=== PATIENT | female | born 1945 | race Caucasian/White ===

== ENCOUNTER → 2023-09-02 16:24 | Outpatient (REF) | payer MEDICARE, SELFPAY | LOC: RAD 16:24 | PROVIDERS: ATTENDING PHYSICIAN Family Medicine | DX: D3A.090 Benign carcinoid tumor of the bronchus and lung (principal) | CPT/HCPCS: 71250 ==

== ENCOUNTER → 2024-03-27 06:59 | Outpatient (REF) | payer MEDICARE, SELFPAY | LOC: PAVMRI 06:59 | PROVIDERS: ATTENDING PHYSICIAN Physician Assistant; FAMILY PHYSICIAN Family Medicine | DX: M54.16 Radiculopathy, lumbar region (principal) | CPT/HCPCS: 72148 ==

== ENCOUNTER → 2024-04-04 12:14 | Outpatient (REF) | payer MEDICARE, SELFPAY ==
[2024-04-04 13:37] LABS: % Basophils 0.4 % (0-2); % Eosinophils 0.6 % (0-6); % Immature Granulocytes 0.2 % (0-0.5); % Lymphocytes 32.4 % (20.5-51.1); % Monocytes 7.5 % (1.7-9.3); % Neutrophils 58.9 % (42.2-75.2); Absolute Lymphocytes 1.6 10^3/uL (1.2-3.4); Absolute Monocytes 0.4 10^3/uL (0.1-0.6); Absolute Neutrophils 2.8 10^3/uL (1.4-6.5); Hematocrit 38.4 % (37.0-47.0); Hemoglobin 13.2 g/dL (12.0-16.0); Mean Corp Hgb Conc. 34.4 g/dL (33.0-37.0); Mean Corpuscular Hgb 31.1 pg (27.0-31.0); Mean Corpuscular Volume 90.6 fL (81.0-99.0); Mean Platelet Volume 12.1 fL (7.4-10.4); Nucleated Red Blood Cells % 0 %; Platelet Count 201 10^3/uL (130-400); Red Blood Cell Count 4.24 10^6/uL (4.20-5.40); Red Cell Dist. Width 12.9 % (11.5-14.5); White Blood Cell Count 4.8 10^3/uL (4.8-10.8)
[2024-04-04 14:10] LABS: HDL Cholesterol 50 mg/dl; LDL Cholesterol, Calculated 50 mg/dl; Total Cholesterol 167 mg/dl (50-199); Triglyceride 337 mg/dl (10-149); Very Low Density Lipoprotein 67 mg/dl (0-30)
== END ==
LOC: REG 12:14
PROVIDERS: ATTENDING PHYSICIAN Family Medicine
DX: I10 Essential (primary) hypertension (principal)
CPT/HCPCS: 36415; 80061; 85025

== ENCOUNTER 2024-04-23 19:26 | Emergency (ER) | payer MEDICARE, SELFPAY ==
[2024-04-23 19:28] VITALS: BP 163/75
[2024-04-23 21:18] VITALS: BP 133/65
[2024-04-23] MEDS: DECADRON 10 MG PO (21:54)
[2024-04-23] MEDS: ANTIVERT 25 MG PO (21:55)
[2024-04-23 22:00] VITALS: BP 131/68
--- NOTE | 2024-04-23 22:23 | ED.GENMED ---
History of Present Illness
General
Chief Complaint: Dizziness
Source: patient and spouse
Exam Limitations: none
Time Seen by Provider: 04/23/24 21:21
Nursing documentation reviewed up to this point in time: agreed with
History of Present Illness
History of Present Illness:
78-year-old female past medical history of GERD hypertension presenting to the emergency department today with concerns of room spinning dizziness over the past few days has been somewhat intermittent seem to be worse with certain head positioning.
She claims that she has had some inflammation to her left ear she has been taking meclizine without relief. Has had some sinus symptoms. Denies fevers chest pain shortness of breath numbness or weakness.
Review of Systems
Review of Systems
Allergies reviewed?: Yes
All Other Systems: ROS reviewed and negative except as documented in HPI and ROS
Phy Exam
Physical Exam
Physical Exam:
GENERAL: Alert , in no apparent distress
EYE: pupils equal and reactive no specific nystagmus on exam
NECK: Supple, no significant adenopathy.
ENT: o/p clr, mmm.
CARDIAC: Regular rate and rhythm .
LUNGS: Clear breath sounds bilaterally, no acute respiratory distress, no wheezes/rales/rhonchi
ABDOMEN: Soft, without focal tenderness, no r/g, no cvat
NEUROLOGICAL: Alert and oriented, no focal neuro deficits 5 out of 5 upper and lower extremity strength normal sensation when palpating bilaterally.
SKIN: Warm and dry, skin intact.
MUSCULOSKELETAL: No edema, well perfused.
PSYCH: Normal and appropriate interaction.
Course
Orders/Labs/Results
Orders:
Orders
04/23/24 19:33
EKG [Electrocardiogram (*1)] Urgent
Reason for Study: Vertigo / Dizzy
EKG- Treatment ONCE
04/23/24 21:44
Dexamethasone [Decadron] 10 mg PO NOW STA
Meclizine [Antivert] 25 mg PO NOW STA
Vital Signs
Initial and Last Documented VS:
Initial Vital Signs
Temp Pulse Resp BP
97.8 F 62 14 163/75
04/23/24 19:28 04/23/24 19:28 04/23/24 19:28 04/23/24 19:28
Last Documented Vital Signs
Temp Pulse Resp BP Pulse Ox
97.8 F 57 12 131/68 95
04/23/24 19:28 04/23/24 22:45 04/23/24 22:45 04/23/24 22:00 04/23/24 22:45
MDM/Problems Addressed
MDM/Problems Addressed:
78-year-old female presenting to the emergency department with concerns of room spinning dizziness over the past few days made worse with certain head positioning's and gaze changes also has had some slight pounding sensation to the left ear last
night currently no pain but does feel some fullness. She has been taking meclizine without relief at home. Upon arrival here blood pressure mildly elevated otherwise vital signs are normal. Patient no obvious distress but unwilling to move in
certain directions due to her avoidance worsening symptoms. No specific nystagmus on examination. She claims that she is asymptomatic when sitting still. Description of symptoms seem to be most consistent with peripheral vertigo considering the
positional nature. She did have some inflammation to her left ear on physical examination and was started on a steroid. Significant improvement of symptoms after treatment able to ambulate well good gait. Stable for discharge at this time advised
for close outpatient follow-up. Return precautions given.
*Critical Care Note
Total Time (30-74mins, 75-104mins- exclusive of procedures): Not Applicable
ED Attending Note
-
Portions of this chart may have been created with voice recognition software.� Occasional wrong word or��sound alike� substitutions may have occurred due to the inherent limitations of voice recognition software.
Discharge Plan
Departure
Patient Disposition: Home (Routine Discharge)
Date of Disposition: 04/23/24
Time of Disposition: 23:09
Patient with high blood pressure during this ER visit?: No
Condition: Good
Covid-19: Not Applicable
Discharge Problem:
Vertigo
Instructions: Dizziness
Prescriptions:
New
meclizine 25 mg tablet
25 mg PO BID PRN (Reason: dizziness) Qty: 7 0RF
prednisone 50 mg tablet
50 mg PO DAILY 4 Days Qty: 4 0RF
Referrals:
George Kennedy MD [Family Provider] -
Osmar Guzman MD [Active] - Follow up in 5-7 days
Brodie Head MD [Active] - Follow up in 5-7 days
Activity Restrictions/Additional Instructions:
You came to the emergency department today with concerns of vertigo. You had improvement here with medications. Please follow closely with ENT. Return to the emergency department any worsening, new or concerning symptoms.
Interventions
Interventions:
*Risk Screen - Suicide Last Done: 04/23/24 19:28
*General Assessment Last Done: 04/23/24 19:28
*Neglect/Abuse Screening Last Done: 04/23/24 19:28
Discharge Date and Time
Print Language: TRINIDADIAN
[2024-04-23 23:19] VITALS: BP 142/70
== END 2024-04-23 23:37 | disposition home or self-care (01) ==
LOC: EMR 19:26
PROVIDERS: EMERGENCY PHYSICIAN Emergency Medicine; FAMILY PHYSICIAN Family Medicine
DX: R42 Dizziness and giddiness (principal); K21.9 Gastro-esophageal reflux disease without esophagitis; I10 Essential (primary) hypertension
CPT/HCPCS: 99283; 93005

== ENCOUNTER → 2024-06-30 16:50 | Outpatient (REF) | payer MEDICARE, SELFPAY ==
[2024-06-30 18:13] LABS: Blood Urea Nitrogen 20 mg/dl (7-17)
== END ==
LOC: REG 16:50
PROVIDERS: ATTENDING PHYSICIAN Otolaryngology; FAMILY PHYSICIAN Family Medicine
DX: H90.3 Sensorineural hearing loss, bilateral (principal)
CPT/HCPCS: 36415; 82565; 84520

== ENCOUNTER → 2024-07-03 17:30 | Outpatient (REF) | payer MEDICARE, SELFPAY | LOC: MRI 17:30 | PROVIDERS: ATTENDING PHYSICIAN Otolaryngology; FAMILY PHYSICIAN Family Medicine | DX: R42 Dizziness and giddiness (principal) | CPT/HCPCS: 70553; A9575 ==

== ENCOUNTER → 2024-09-04 15:34 | Outpatient (REF) | payer MEDICARE, SELFPAY ==
[2024-09-04 16:57] LABS: % Basophils 0.5 % (0-2); % Eosinophils 0.5 % (0-6); % Immature Granulocytes 0.3 % (0-0.5); % Lymphocytes 27.1 % (20.5-51.1); % Monocytes 7.6 % (1.7-9.3); Absolute Lymphocytes 1.6 10^3/uL (1.2-3.4); Absolute Monocytes 0.5 10^3/uL (0.1-0.6); Absolute Neutrophils 3.8 10^3/uL (1.4-6.5); Hematocrit 37.9 % (37.0-47.0); Hemoglobin 13.3 g/dL (12.0-16.0); Mean Corp Hgb Conc. 35.1 g/dL (33.0-37.0); Mean Corpuscular Hgb 31.6 pg (27.0-31.0); Mean Platelet Volume 12.4 fL (7.4-10.4); Nucleated Red Blood Cells % 0 %; Platelet Count 175 10^3/uL (130-400); Red Blood Cell Count 4.21 10^6/uL (4.20-5.40)
[2024-09-04 17:14] LABS: Blood Urea Nitrogen 22 mg/dl (7-17); Calcium 9.7 mg/dl (8.4-10.2); Carbon Dioxide 29 mmol/L (22-30); Chloride 98 mmol/L (98-107); Glucose 84 mg/dl (70-99); Potassium 4.3 mmol/L (3.5-5.1); Sodium 135 mmol/L (135-145); eGFR > 60.00
== END ==
LOC: REG 15:34
PROVIDERS: ATTENDING PHYSICIAN Specialist; FAMILY PHYSICIAN Family Medicine
DX: Z01.818 Encounter for other preprocedural examination (principal)
CPT/HCPCS: 36415; 80048; 85025

== ENCOUNTER → 2024-09-06 14:08 | Outpatient (REF) | payer MEDICARE, SELFPAY | LOC: HWRAD 14:08 | PROVIDERS: ATTENDING PHYSICIAN Specialist; FAMILY PHYSICIAN Family Medicine | DX: M19.012 Primary osteoarthritis, left shoulder (principal) | CPT/HCPCS: 73200 ==

== ENCOUNTER 2024-10-23 14:58 | Outpatient (RCR) | payer MEDICARE, SELFPAY | END 2024-10-23 23:59 | disposition home or self-care (01) | LOC: RPT 14:58 | PROVIDERS: ATTENDING PHYSICIAN Physician Assistant Surgical; FAMILY PHYSICIAN Family Medicine | DX: Z47.1 Aftercare following joint replacement surgery (principal); Z96.612 Presence of left artificial shoulder joint; M19.012 Primary osteoarthritis, left shoulder; M62.81 Muscle weakness (generalized); Z73.6 Limitation of activities due to disability | CPT/HCPCS: 97010; 97110; 97140; 97162 ==

== ENCOUNTER → 2024-11-23 12:11 | Outpatient (REF) | payer MEDICARE, SELFPAY ==
[2024-11-23 13:02] LABS: % Basophils 0.8 % (0-2); % Lymphocytes 33.5 % (20.5-51.1); % Monocytes 9.1 % (1.7-9.3); % Neutrophils 54.6 % (42.2-75.2); Absolute Eosinophils 0.1 10^3/uL (0-0.7); Absolute Lymphocytes 1.3 10^3/uL (1.2-3.4); Absolute Monocytes 0.4 10^3/uL (0.1-0.6); Absolute Neutrophils 2.2 10^3/uL (1.4-6.5); Hematocrit 41.2 % (37.0-47.0); Mean Corpuscular Hgb 31.3 pg (27.0-31.0); Mean Platelet Volume 12.2 fL (7.4-10.4); Nucleated Red Blood Cells % 0 %; Platelet Count 175 10^3/uL (130-400); Red Blood Cell Count 4.48 10^6/uL (4.20-5.40); Red Cell Dist. Width 13.2 % (11.5-14.5)
[2024-11-23 13:41] LABS: ALT (SGPT) 15 U/L (0-35); AST (SGOT) 21 U/L (14-36); Albumin 4.5 g/dl (3.5-5.0); Alkaline Phosphatase 70 U/L (38-126); Blood Urea Nitrogen 14 mg/dl (7-17); Calcium 9.9 mg/dl (8.4-10.2); Carbon Dioxide 30 mmol/L (22-30); Chloride 106 mmol/L (98-107); Glucose 109 mg/dl (70-99); HDL Cholesterol 54 mg/dl; Iron 128 ug/dl (37-170); LDL Cholesterol, Calculated 85 mg/dl; Potassium 4.4 mmol/L (3.5-5.1); Sodium 141 mmol/L (135-145); Total Bilirubin 0.6 mg/dl (0.2-1.3); Total Cholesterol 206 mg/dl (50-199); Triglyceride 337 mg/dl (10-149); Very Low Density Lipoprotein 67 mg/dl (0-30); eGFR > 60.00
[2024-11-23 13:50] LABS: Percent Saturation 46 % (20-50); Total Iron Binding Capacity 277 ug/dl (265-497)
[2024-11-23 14:16] LABS: Glycohemoglobin (HgbA1c) 5.5 % (4.0-5.6)
[2024-11-23 15:50] LABS: Free T4 0.96 ng/dl (0.78-2.19); Vitamin D, 25-OH*** 53.7 ng/mL (30-80)
[2024-11-23 16:02] LABS: TSH 0.13 uIU/ml (0.47-4.68)
[2024-11-23 16:07] LABS: Ferritin 68.2 ng/ml (11.1-264.0)
[2024-11-23 16:22] LABS: Vitamin B12 959 pg/ml (239-931)
== END ==
LOC: REG 12:11
PROVIDERS: ATTENDING PHYSICIAN Physician Assistant Medical; FAMILY PHYSICIAN Family Medicine
DX: I10 Essential (primary) hypertension (principal); R53.83 Other fatigue; E78.2 Mixed hyperlipidemia; Z79.899 Other long term (current) drug therapy; M25.50 Pain in unspecified joint
CPT/HCPCS: 36415; 80053; 80061; 82306; 82607; 82728; 83036; 83540; 83550; 84439; 84443; 85025; 86618

== ENCOUNTER 2024-11-24 14:18 | Outpatient (RCR) | payer MEDICARE, SELFPAY | END 2024-11-24 23:59 | disposition home or self-care (01) | LOC: RPT 14:18 | PROVIDERS: ATTENDING PHYSICIAN Physician Assistant Surgical; FAMILY PHYSICIAN Family Medicine | DX: Z47.1 Aftercare following joint replacement surgery (principal); M19.012 Primary osteoarthritis, left shoulder; Z73.6 Limitation of activities due to disability; M62.81 Muscle weakness (generalized); Z96.612 Presence of left artificial shoulder joint | CPT/HCPCS: 97010; 97110; 97112; 97140 ==

== ENCOUNTER → 2024-12-01 15:29 | Outpatient (REF) | payer MEDICARE, SELFPAY ==
[2024-12-01 16:07] LABS: % Basophils 0.7 % (0-2); % Eosinophils 0.8 % (0-6); % Immature Granulocytes 0.4 % (0-0.5); % Lymphocytes 29.5 % (20.5-51.1); % Monocytes 9.2 % (1.7-9.3); % Neutrophils 59.4 % (42.2-75.2); Absolute Basophils 0.1 10^3/uL (0-0.2); Absolute Eosinophils 0.1 10^3/uL (0-0.7); Absolute Lymphocytes 2.1 10^3/uL (1.2-3.4); Absolute Monocytes 0.7 10^3/uL (0.1-0.6); Absolute Neutrophils 4.3 10^3/uL (1.4-6.5); Hematocrit 44.2 % (37.0-47.0); Hemoglobin 15.1 g/dL (12.0-16.0); Mean Corp Hgb Conc. 34.2 g/dL (33.0-37.0); Mean Corpuscular Hgb 31.1 pg (27.0-31.0); Mean Corpuscular Volume 91.1 fL (81.0-99.0); Mean Platelet Volume 11.9 fL (7.4-10.4); Nucleated Red Blood Cells % 0 %; Platelet Count 198 10^3/uL (130-400); Red Blood Cell Count 4.85 10^6/uL (4.20-5.40); Red Cell Dist. Width 12.9 % (11.5-14.5); White Blood Cell Count 7.3 10^3/uL (4.8-10.8)
== END ==
LOC: REG 15:29
PROVIDERS: ATTENDING PHYSICIAN Physician Assistant Medical; FAMILY PHYSICIAN Family Medicine
DX: D72.819 Decreased white blood cell count, unspecified (principal)
CPT/HCPCS: 36415; 85025

== ENCOUNTER 2024-12-22 13:53 | Outpatient (RCR) | payer MEDICARE, SELFPAY | END 2024-12-22 23:59 | disposition home or self-care (01) | LOC: RPT 13:53 | PROVIDERS: ATTENDING PHYSICIAN Physician Assistant Surgical; FAMILY PHYSICIAN Family Medicine | DX: Z47.1 Aftercare following joint replacement surgery (principal); M19.012 Primary osteoarthritis, left shoulder; Z73.6 Limitation of activities due to disability; M62.81 Muscle weakness (generalized); Z96.612 Presence of left artificial shoulder joint | CPT/HCPCS: 97010; 97110; 97112; 97140 ==

== ENCOUNTER 2025-01-22 14:12 | Outpatient (RCR) | payer MEDICARE, SELFPAY | END 2025-01-22 23:59 | disposition home or self-care (01) | LOC: RPT 14:12 | PROVIDERS: ATTENDING PHYSICIAN Physician Assistant Surgical; FAMILY PHYSICIAN Family Medicine | DX: Z47.1 Aftercare following joint replacement surgery (principal); M19.012 Primary osteoarthritis, left shoulder; Z73.6 Limitation of activities due to disability; M62.81 Muscle weakness (generalized); Z96.612 Presence of left artificial shoulder joint | CPT/HCPCS: 97010; 97110; 97112; 97140 ==

== ENCOUNTER 2025-02-16 12:53 | Outpatient (RCR) | payer MEDICARE, SELFPAY | END 2025-02-21 12:56 | disposition home or self-care (01) | LOC: RPT 12:53 | PROVIDERS: ATTENDING PHYSICIAN Physician Assistant Surgical; FAMILY PHYSICIAN Family Medicine | DX: Z47.1 Aftercare following joint replacement surgery (principal); M19.012 Primary osteoarthritis, left shoulder; Z73.6 Limitation of activities due to disability; Z96.612 Presence of left artificial shoulder joint; M62.81 Muscle weakness (generalized) | CPT/HCPCS: 97010; 97110; 97112 ==

== ENCOUNTER 2025-03-07 20:19 | Emergency (ER) | payer MEDICARE, SELFPAY ==
[2025-03-07 20:22] VITALS: BP 174/88
[2025-03-07] MEDS: ROXICODONE 5 MG PO (21:14)
[2025-03-07] MEDS: LIDOCAINE 4% PATCH 1 PATCH TOPICAL (21:15)
[2025-03-07 21:19] VITALS: BMI 26.0
[2025-03-07 21:21] VITALS: BP 157/80
[2025-03-07 22:06] VITALS: BP 162/81
--- NOTE | 2025-03-07 22:36 | ED.MUSCINJ ---
HPI-Injury
General
Chief Complaint: Musculo-Skeletal Complaint
Source: patient
Exam Limitations: none
Time Seen by Provider: 03/07/25 20:56
Nursing documentation reviewed up to this point in time: agreed with
History of Present Illness-Injury
Is this injury a work related problem?: No
Is pt an associate of [facility]?: No
Initial Injury comments:
Patient to ED wtih complaint of left posterior shoulder pain. Pain started this afternoon. States she was lifting heavy boxes today but did not have pain at that time. Taking tylenol wihtout improvement. Pain is worse with movement. Denies any
cp/pressure, SOB. To ED accompanied by spouse.
Past History
Past History
ED Past Medical History: None
Review of Systems
Review of Systems
Allergies reviewed?: Yes
All Other Systems: ROS reviewed and negative except as documented in HPI and ROS
Constitutional: Reports no symptoms
EENT: Reports no symptoms
Respiratory: Reports no symptoms
Cardiac: Reports no symptoms
ABD/GI: Reports no symptoms
Musculoskeletal: Reports joint pain (Pain to left posterior shoulder)
Skin: Reports no symptoms
Neurological: Reports no symptoms
Psychiatric: Reports no symptoms
Musculoskeletal Injury Exam
Musculoskeletal Injury Exam
Left Posterior Shoulder:
Pain with Movement?: Moderate
Tender to palpation?: Moderate
Soft tissue swelling?: None
External deformity and angulation?: None
Joint effusion?: None
Contusion?: None
Hematoma-local bleeding into tissue?: None
Strain- Sprain- Tear (Connective tissue injury)?: Moderate
Crepitus with movement?: No
Joint instability?: No
Malalignment/deformity?: No
Range of motion: Full
Distal skin color and temperature: normal-warm & good color
Capillary Refill: normal
Normal distal neurovascular exam?: Yes
Peripheral Pulses: radial (left): 3+
Phy Exam
General Physical Exam
General Presentation: well appearing and mild distress
General age: appears stated age
General Skin: warm and dry
General Habitus: normal
General Mental: alert
General Hydration: appears well hydrated
Cardiovascular Exam
Cardiovascular Exam: regular rate/rhythm and no edema
Musculoskeletal Exam
Musculoskeletal Exam: full ROM, neuro vasc intact and other (Full ROM to left shoulder. Pain worse with movement, palpation. No redness or swelling at joint)
Skin Exam
Skin Exam: normal color, warm/dry and no rash
Psychiatric Exam
Psychiatric Exam: normal mood/affect
Injury Course
Orders/Labs/Results
Orders:
Orders
03/07/25 20:24
ECG [Electrocardiogram (*1)] Urgent
Reason for Study: Chest Pain
EKG- Treatment ONCE
03/07/25 20:25
CR Shoulder - Left Min 2 View* Urgent
Comment:
Reason For Exam: pain
03/07/25 21:08
Lidocaine [Lidocaine 4% Patch] 1 patch TOPICAL NOW STA
Apply Lidocaine patch(s) to:: left shoulder
Oxycodone [Roxicodone] 5 mg PO NOW STA
*Pulse Oximetry
SaO2: 94
Oxygen Mode of Delivery: Room air
Patient hypoxic: no
*Critical Care Note
Total Time (30-74mins, 75-104mins- exclusive of procedures): Not Applicable
Update Note
Update Note:
Patient to ED with complaint of left posterior shoulder pain after lifting boxes today. No swelling to joint. Full ROM, neurovasc. intact. No cp/pressure, SOB. EKG NSR. Pain is worse with movement, able to reproduce pain. Xray neg for fx,
effusion. Recommend ice, tylenol prn. SHe has rx for oxycodone at home and will take as needed for breakthrough pain. She will use a sling for comfort. WIll discharge home, followup wtih PCP. Given instructions on s/s to return to ED and she is
agreeable to plan.
ED Attending Note
-
Portions of this chart may have been created with voice recognition software.� Occasional wrong word or��sound alike� substitutions may have occurred due to the inherent limitations of voice recognition software.
Discharge Plan
Departure
Patient Disposition: Home (Routine Discharge)
Date of Disposition: 03/07/25
Time of Disposition: 22:15
Patient with high blood pressure during this ER visit?: No
Condition: Good
Covid-19: Not Applicable
Discharge Problem:
Acute shoulder pain
Instructions: Using Cold for Pain, Shoulder pain
Prescriptions:
No Action
meclizine 25 mg tablet
25 mg PO BID PRN (Reason: dizziness) Qty: 7 0RF
prednisone 50 mg tablet
50 mg PO DAILY 4 Days Qty: 4 0RF
Referrals:
George Kennedy MD [Family Provider, Family Practice]
Activity Restrictions/Additional Instructions:
Follow up with your orthopedist if your symptoms do not improve over the next week.
Interventions
Interventions:
*Risk Screen - Suicide Last Done: 03/07/25 21:19
*General Assessment Last Done: 03/07/25 20:22
*Neglect/Abuse Screening Last Done: 03/07/25 21:19
*ED- Fall Risk Assessment Last Done: 03/07/25 21:19
*ED COVID-19 Vaccine History Last Done: 03/07/25 21:19
ED-Musculoskeletal Assessment Last Done: 03/07/25 21:57
Discharge Date and Time
Print Language: FIJIAN
== END 2025-03-07 22:50 | disposition home or self-care (01) ==
LOC: EMR 20:19
PROVIDERS: EMERGENCY PHYSICIAN Emergency Medicine; FAMILY PHYSICIAN Family Medicine
DX: M25.512 Pain in left shoulder (principal); X50.0XXA Overexertion from strenuous movement or load, initial encounter
CPT/HCPCS: 99283; 73030; 93005

== ENCOUNTER → 2025-06-07 14:14 | Outpatient (REF) | payer MEDICARE, SELFPAY | LOC: RCS 14:14 | PROVIDERS: ATTENDING PHYSICIAN Internal Medicine Cardiovascular Disease; FAMILY PHYSICIAN Family Medicine | DX: R06.09 Other forms of dyspnea (principal) | CPT/HCPCS: 93306 ==

== ENCOUNTER → 2025-06-14 13:00 | Outpatient (REF) | payer MEDICARE, SELFPAY | LOC: RAD 13:00 | PROVIDERS: ATTENDING PHYSICIAN Family Medicine | DX: M25.552 Pain in left hip (principal) | CPT/HCPCS: 73502 ==